=== PATIENT | female | born 1930 | race Caucasian/White ===

== ENCOUNTER 2017-07-13 11:30 | Emergency (ER) | payer MEDICARE, MEDICAID ==
[~2017-07-13] VITALS: Ht 152.4 cm; Wt 61.2 kg
--- NOTE | 2017-07-13 11:37 | NUR ---
BILLY FROM [facility] FOR DISLODGED G-TUBE. RR IS EVEN AND UNLABORED WITH NAD NOTED. SKIN IS WARM AND DRY. AWAITING MD FOR EVAL.
[2017-07-13] MEDS ORDERED: DIATR MEGLU/DIATRIZOATE SODIUM 30 ML BOTTLE (GASTROGRAPHIN) ONE (11:38)
--- NOTE | 2017-07-13 11:40 | NUR ---
g-tube replaced, xray at bedside for kub with contrast.
--- NOTE | 2017-07-13 11:54 | NUR ---
Patient discharged to home in stable condition. Written and verbal after care instructions given. Patient verbalizes understanding of instruction.
[2017-07-13 11:56] VITALS: BP 148/82
[2017-07-13] MEDS ORDERED: DIATR MEGLU/DIATRIZOATE SODIUM 30 ML BOTTLE (GASTROGRAPHIN) PO ONE (12:00)
== END 2017-07-13 11:57 ==
LOC: ER 11:32
DX: K94.23 Gastrostomy malfunction (principal); D64.9 Anemia, unspecified; F03.90 Unspecified dementia, unspecified severity, without behavioral disturbance, psychotic disturbance, mood disturbance, and anxiety; G20 Parkinson's disease; I10 Essential (primary) hypertension; K21.9 Gastro-esophageal reflux disease without esophagitis; F17.210 Nicotine dependence, cigarettes, uncomplicated
CPT/HCPCS: 43760; 74000; 99284; 99406; A4606; Q9963 ×2; Z7610